=== PATIENT | male | born 1950 | race Caucasian/White ===

== ENCOUNTER 2018-04-05 20:08 | Emergency (ER) | payer MEDICARE, SELFPAY ==
[2018-04-05 20:13] VITALS: BP 157/88; PULSE 88; RESP 20; TEMP 36.6; O2SAT 99; BMI 37.6
[2018-04-05 21:45] VITALS: BP 162/99; PULSE 87; RESP 18; O2SAT 99
--- NOTE | 2018-04-05 21:57 | DI.RAD.S_ITS ---
PROCEDURE: XR CHEST 1V INDICATIONS: 67-year-old male with hypertension and cardiac history. TECHNIQUE: One view of the chest was acquired. COMPARISON: [facility], , CHEST 1 VIEW, 04/14/2017, 17:01. [facility], , CHEST 2 VIEW, 03/25/2017, 11:37. [facility], , CHEST 1 VIEW, 01/08/2017, 10:15. FINDINGS: Surgical changes and devices: None. Lungs and pleura: No pleural effusions or pneumothorax. Lungs are clear. Mediastinum: Mediastinal contours appear normal. Heart size is normal. Bones and chest wall: No suspicious bony lesions. Overlying soft tissues appear unremarkable. IMPRESSION: No acute cardiopulmonary disease. Dictated by: Jordin Ponce M.D. on 04/06/2018 at 7:50 Approved by: Jordni Ponce M.D. on 04/06/2018 at 7:50
[2018-04-05 22:05] LABS: Add Manual Diff / Slide Review NO; Basophils Percent Auto 0.7 % (0-2); Eosinophils Percent Auto 2.8 % (2-4); Hemoglobin 14.4 g/dL (13.5-17.5); Lymphocytes Percent Auto 33.4 % (25-40); Mean Corpuscular HGB Conc 34.4 % (30-36); Mean Corpuscular Volume 84.2 fL (80-100); Monocytes Percent Auto 8.1 % (3-14); Neutrophils Absolute Auto 3600 /uL (3000-5900); Platelet Count 191 X10^3/uL (150-400); Red Blood Cell Count 4.98 X10^6/uL (4.5-5.9); Red Cell Distribution Width 14.2 % (11.6-14.8); White Blood Cell Count 6.5 X10^3/uL (4.5-11.0)
[2018-04-05 22:11] LABS: Alanine Aminotransferase 41 IU/L (21-72); Albumin 4.2 g/dL (3.5-5.0); Albumin Globulin Ratio 1.2 (1.0-2.8); Alkaline Phosphatase 93 U/L (38-126); Aspartate Aminotransferase 25 IU/L (17-59); Bilirubin Total 0.8 mg/dL (0.2-1.3); Blood Urea Nitrogen 18 mg/dL (9-20); Calcium 8.8 mg/dL (8.4-10.2); Carbon Dioxide 28 mmol/L (22-32); Chloride 99 mmol/L (98-107); Creatine Kinase 125 U/L (55-170); Estimated Glomerular Filt Rate > 60.0 mL/min (>60); Globulin 3.5 g/dL (1.7-4.1); Glucose 90 mg/dL (80-110); HEMOLYSIS < 15 (0-50); Lipase 75 U/L (23-300); Potassium 4.2 mmol/L (3.4-5.1); Sodium 133 mmol/L (137-145); Total Protein 7.7 g/dL (6.3-8.2)
[2018-04-05 22:17] VITALS: BP 174/97; PULSE 78; RESP 19; O2SAT 99
[2018-04-05 22:22] LABS: Troponin I 0.021 ng/mL (0.01-0.034)
[2018-04-05 22:26] LABS: CKMB % Relative Index 2.2 % (1.5-5.0); Creatine Kinase MB 2.75 ng/mL (<2.37)
--- NOTE | 2018-04-05 22:55 | ED.GENADULT ---
HPI - General Adult General Chief complaint: Hypertension Stated complaint: SAYS HIS BLOOD PRESSURE IS REALLY HIGH Time Seen by Provider: 04/05/18 21:32 Source: patient Mode of arrival: ambulatory Limitations: no limitations History of Present Illness HPI narrative: Patient presents to the emergency department today stating that he has had multiple episodes of just not feeling right over the past few days to weeks and states this all started when he started drinking energy drinks. He states that he has been working more than normal and sleeping last. As a result he has been consuming more caffeine than that which is normal for him. On multiple occasions in the emergency department he stated he felt on well and it was noted that he was throwing occasional PVCs at that point time. At home he had an episode where he felt particularly bad and flushed and took his blood pressure and found it to be 185 systolic. He has a history of hypertension and had been on lisinopril in the past. He denies any significant chest pain or shortness of breath. He denies nausea, vomiting or diarrhea. He denies history of the same. Onset (ago): week(s) Treatments prior to arrival: none Related Data Home Medications Medication Instructions Recorded Confirmed [IODIZYME] Q DAY #0 01/08/17 aspirin 81 mg PO QDAY #0 01/08/17 levothyroxine [Synthroid] 25 mcg PO QDAY #0 01/08/17 Previous Rx's Medication Instructions Recorded albuterol sulfate [Ventolin HFA] 0 puff INH Q4HP PRN #1 ea 03/25/17 hydrochlorothiazide 25 mg PO QDAY PRN #30 tab 03/25/17 azithromycin [Zithromax Z-Saji] 0 tab PO QDAY #6 tab 04/14/17 prednisone 50 mg PO AMCC 5 Days #0 tab 04/14/17 lisinopril 20 mg PO DAILY #30 tab 04/05/18 Allergies Allergy/AdvReac Type Severity Reaction Status Date / Time codeine [CODEINE] Allergy Unknown MAKES Verified 04/05/18 20:18 IRRITABLE, VOMITING Review of Systems Review of Systems All systems reviewed & are unremarkable except as noted in HPI and below Constitutional Denies chills, Denies fever(s), Denies lethargy and Denies weakness Eyes Denies change in vision, Denies eye discharge, Denies irritation and Denies loss of vision ENT Ears, Nose, Mouth, and Throat: Denies change in voice, Denies neck pain and Denies sore throat Cardiovascular Denies chest pain, Denies irregular heart rhythm, Denies lightheadedness, Denies palpitations, Denies dyspnea, Denies dyspnea on exertion and Denies orthopnea Respiratory Denies cough, Denies dyspnea, Denies dyspnea on exertion and Denies wheezing Gastrointestinal Gastrointestinal: Denies abdominal pain, Denies change in bowel habits, Denies diarrhea, Denies nausea and Denies vomiting Genitourinary Denies hematuria, Denies flank pain, Denies urinary incontinence and Denies urinary urgency Musculoskeletal Denies neck pain Integumentary/Breasts Denies pruritus, Denies erythema, Denies rash and Denies wounds Neurologic Denies confusion, Denies loss of vision and Denies weakness Psychiatric Denies anxiety, Denies confusion, Denies depression, Denies homicidal ideation and Denies suicidal ideation Endocrine Denies palpitations Hematologic/Lymphatic Denies easy bruising Allergic/Immunologic Denies wheezing [facility] Social History Smoking Status: Former smoker Exam Initial Vital Signs Initial Vital Signs: Vital Signs Temperature 98 F 04/05/18 20:13 Pulse Rate 88 04/05/18 20:13 Respiratory Rate 20 04/05/18 20:13 Blood Pressure 157/88 H 04/05/18 20:13 Pulse Oximetry 99 04/05/18 20:13 Const General: cooperative and well developed Nutritional Appearance: well nourished Orientation: alert, awake, oriented x3 and not confused HENMD Head: normocephalic and atraumatic Ears: external ears normal and TM's normal bilaterally Nose: external nose normal and No nasal discharge Face and sinus: sinuses nontender, face symmetric, no sinus tenderness and No dry mucous membranes Mouth: oral mucosae normal and moist mucous membranes Teeth and gingiva: dentition normal Throat: tonsils normal and uvula midline Eyes General: appearance normal, both eyes and all related structures Eyelids: eyelids normal Conjunctivae: conjunctivae normal Sclera: sclerae normal Pupils: PERRL EOM: EOM intact bilaterally Neck Neck: normal visual inspection, trachea midline, No lymphadenopathy, No midline deformity and No JVD Lymphatic: No lymphedema Chest Chest: normal inspection of the chest Resp Effort & Inspection: normal respiratory effort, able to speak in complete sentences, no respiratory distress and no use of accessory muscles Auscultation: clear to auscultation bilaterally, no rales, no rhonchi and no wheezes Cardio Rate: regular rate Rhythm: regular rhythm Heart Sounds: no click, no gallops, no murmurs and no rubs Pulses: normal peripheral pulses GI Inspection: non-distended Palpation: soft, no hepatosplenomegaly, No guarding, No pulsatile mass and No tender Auscultation: normal bowel sounds Back/Spine/Pelvis Back: No CVA tenderness Cervical Spine: cervical ROM normal and No pain with cervical ROM Thoracic/Lumbar Spine: thoracic and lumbar spine normal to inspection Skin General: no rashes or lesions noted, No jaundice and No petechiae Neuro General: alert, oriented x3, gait normal and no focal motor deficits Speech: speech normal Extrem General: full ROM, no clubbing, cyanosis or edema, no pedal edema and no calf tenderness Psych Appearance: well kempt Mental Status: mental status grossly normal Attitude: cooperative Thought Content: normal and suicidality Judgment: judgment good Course Orders Ordered: ED Orders 04/05/18 21:00 EKG-12 Lead Routine 04/05/18 21:50 Complete Blood Count AUTO DIFF Stat Comprehensive Metabolic Panel Stat Lipase Stat Troponin with CK Cardiac Panel Stat 04/05/18 21:57 XR chest 1V Stat Discontinued Medications Aspirin (Aspirin Chew) 324 mg PO NOW ONE Stop: 04/05/18 21:58 Sodium Chloride (Normal Saline 0.9%) 1,000 mls @ 150 mls/hr IV CONT RAINER Reevaluation(s) Reevaluation #1: Patient continues to be asymptomatic, as he has been for the duration of his visit Vital Signs - 8 hr 04/05/18 21:45 04/05/18 22:17 04/05/18 23:20 Pulse Rate 87 78 79 Respiratory Rate 18 19 16 Blood Pressure [Right Arm] 162/99 H 174/97 H 153/97 H Pulse Oximetry 99 99 96 Medical Decision Making MDM Narrative Medical decision making narrative: Differential diagnosis includes PVCs, ischemic heart disease, hypertension, fatigue, exposure to caffeine, versus other. Lab Data Result diagrams: 04/05/18 21:50 04/05/18 21:50 Lab Results 04/05/18 04/05/18 Range/Units 21:50 21:50 WBC 6.5 (4.5-11.0) X10^3/uL RBC 4.98 (4.5-5.9) X10^6/uL Hgb 14.4 (13.5-17.5) g/dL Hct 42.0 (41-53) % MCV 84.2 (80-100) fL MCH 29.0 (26-34) PG MCHC 34.4 (30-36) % RDW 14.2 (11.6-14.8) % Plt Count 191 (150-400) X10^3/uL Neut % (Auto) 55.0 (50-75) % Lymph % (Auto) 33.4 (25-40) % [place] % (Auto) 8.1 (3-14) % Eos % (Auto) 2.8 (2-4) % Baso % (Auto) 0.7 (0-2) % Neut # (Auto) 3600 (8984-4657) /uL Sodium 133 L (137-145) mmol/L Potassium 4.2 (3.4-5.1) mmol/L Chloride 99 (98-107) mmol/L Carbon Dioxide 28 (22-32) mmol/L BUN 18 (9-20) mg/dL Creatinine 1.00 (0.66-1.25) mg/dL Estimated GFR > 60.0 (>60) mL/min BUN/Creatinine Ratio 18.0 (6-22) Glucose 90 (80-110) mg/dL Calcium 8.8 (8.4-10.2) mg/dL Total Bilirubin 0.8 (0.2-1.3) mg/dL AST 25 (17-59) IU/L ALT 41 (21-72) IU/L Alkaline Phosphatase 93 (38-126) U/L Total Creatine Kinase 125 (55-170) U/L CK-MB (CK-2) 2.75 H (<2.37) ng/mL CK-MB (CK-2) Rel Index 2.2 (1.5-5.0) % Troponin I 0.021 (0.01-0.034) ng/mL Total Protein 7.7 (6.3-8.2) g/dL Albumin 4.2 (3.5-5.0) g/dL Globulin 3.5 (1.7-4.1) g/dL Albumin/Globulin Ratio 1.2 (1.0-2.8) Lipase 75 (23-300) U/L ECG Data Attestation: I personally reviewed and interpreted this ECG as follows: Prior ECG tracings: not available for review Interpretation: EKG is normal sinus rhythm and free of any signs of ischemia or ectopy. Discharge Plan Departure Patient Disposition: Home, Self-Care Clinical Impression: HTN, goal below 140/90 Discharge Date/Time: 04/05/18 23:40 Interventions: ED Discharge Assessment Last Done: 04/05/18 23:39 Instructions: DI for High Blood Pressure Activity Restrictions/Additional Instructions: *You have been diagnosed with [ HTN, fatigue, PVCs ] *What to do: *Take medications as directed *Follow up with your PCP: you've been given some contact info *Return to ER if you should have any new, worsening or concerning symptoms Prescriptions: New lisinopril 20 mg tablet 20 mg PO DAILY Qty: 30 RF: 0 No Action levothyroxine [Synthroid] 25 MCG tablet 25 mcg PO QDAY Qty: 0 RF: 0 aspirin 81 MG tablet,chewable 81 mg PO QDAY Qty: 0 RF: 0 [IODIZYME] Q DAY Qty: 0 RF: 0 hydrochlorothiazide 25 MG tablet 25 mg PO QDAY PRNQty: 30 RF: 0 albuterol sulfate [Ventolin HFA] 90 MCG/PUFF HFA aerosol inhaler INH Q4HP PRNQty: 1 RF: 0 azithromycin [Zithromax Z-Saji] 250 MG tablet PO QDAY Qty: 6 RF: 0 prednisone 50 MG tablet 50 mg PO AMCC 5 Days Qty: 0 RF: 0 Referrals: Genia Hull DO [Primary Care Provider] -
[2018-04-05 23:20] VITALS: BP 153/97; PULSE 79; RESP 16; O2SAT 96
== END 2018-04-05 23:40 | disposition home or self-care (01) ==
PROVIDERS: Emergency Provider Emergency Medicine; PCP Family Medicine
DX: I10 Essential (primary) hypertension (principal)
CPT/HCPCS: 36591; 71045; 80053; 81003; 82550; 82553; 83690; 84484; 85025; 93005; 99283; 99285

== ENCOUNTER 2021-06-19 14:58 | Emergency (ER) | payer MEDICARE, SELFPAY ==
[2021-06-19 15:07] VITALS: BP 165/88; PULSE 85; RESP 22; O2SAT 98
--- NOTE | 2021-06-19 17:16 | DI.CT.S_ITS ---
PROCEDURE: CT HEAD/BRAIN WO CON INDICATIONS: worst headache TECHNIQUE: Noncontrast 4.5 mm thick angled axial sections acquired from the foramen magnum to the vertex, with coronal and sagittal reformats. For radiation dose reduction, the following was used: automated exposure control, adjustment of mA and/or kV according to patient size. COMPARISON: [facility], CT, HEAD WITHOUT CONTRAST, 01/08/2017, 8:03. FINDINGS: Image quality: Excellent. CSF spaces: Basal cisterns are patent. No extra-axial fluid collections. Ventricles are normal in size and shape. Mild atrophy and multifocal white matter chronic ischemic change noted, stable from the prior. Brain: No midline shift. No intracranial masses or hemorrhage. [place]-white matter interface is normal. Atherosclerotic vascular calcification noted involving the cavernous segments of both ICA Skull and face: Calvarium and visualized facial bones are intact, without suspicious lesions. Sinuses: Visualized sinuses and mastoids are clear. IMPRESSION: Mild atrophy and white matter chronic ischemic change without intracranial hemorrhage or mass effect. Approved by: Zaid Black M.D. on 06/19/2021 at 17:13
--- NOTE | 2021-06-19 17:19 | DI.RAD.S_ITS ---
PROCEDURE: XR CHEST 1V INDICATIONS: Flu like symptoms TECHNIQUE: One view of the chest was acquired. COMPARISON: [facility], CR, XR CHEST 1V, 04/05/2018, 22:07. FINDINGS: Surgical changes and devices: None. Lungs and pleura: Bibasilar atelectasis and/or infiltrates greater on the left. Minimal right hemidiaphragm elevation. Mediastinum: Mediastinal contours appear normal. Heart size is normal. Bones and chest wall: No suspicious bony lesions. Overlying soft tissues appear unremarkable. IMPRESSION: Bibasilar atelectasis and/or infiltrate current, greater on the left Dictated by: Zaid Black M.D. on 06/19/2021 at 16:38 Approved by: Zaid Black M.D. on 06/19/2021 at 16:39
[2021-06-19 17:20] LABS: COVID19 -Nasal RAPID POSITIVE (Negative)
[2021-06-19 17:38] LABS: Add Manual Diff / Slide Review NO; Basophils Absolute Auto 0 /uL (0-100); Basophils Percent Auto 0.3 % (0-2); Eosinophils Absolute Auto 0 /uL (0-450); Hematocrit 43.1 % (41-53); Hemoglobin 14.6 g/dL (13.5-17.5); Lymphocytes Absolute Auto 1300 /uL (1100-4500); Lymphocytes Percent Auto 24.5 % (25-40); Mean Corpuscular HGB Conc 33.8 % (30-36); Mean Corpuscular Hemoglobin 28.4 PG (26-34); Monocytes Absolute Auto 500 /uL (0-900); Monocytes Percent Auto 10.5 % (3-14); Neutrophils Absolute Auto 3300 /uL (1500-7000); Neutrophils Percent Auto 63.7 % (50-75); Platelet Count 225 X10^3/uL (150-400); Red Blood Cell Count 5.13 X10^6/uL (4.5-5.9); Red Cell Distribution Width 14.8 % (11.6-14.8); White Blood Cell Count 5.1 X10^3/uL (4.5-11.0)
[2021-06-19 17:52] LABS: Alanine Aminotransferase 28 IU/L (<50); Albumin Globulin Ratio 1.1 (1.0-2.8); Alkaline Phosphatase 71 U/L (38-126); Aspartate Aminotransferase 34 IU/L (17-59); BUN Creatinine Ratio 15.5 (6-22); Bilirubin Total 0.8 mg/dL (0.2-1.3); Blood Urea Nitrogen 16 mg/dL (9-20); Calcium 8.8 mg/dL (8.4-10.2); Carbon Dioxide 28 mmol/L (22-32); Chloride 100 mmol/L (98-107); Estimated Glomerular Filt Rate > 60.0 mL/min (>60); Globulin 3.6 g/dL (1.7-4.1); Glucose 128 mg/dL (80-110); HEMOLYSIS < 15 (0-50); Potassium 4.2 mmol/L (3.4-5.1); Sodium 133 mmol/L (137-145); Total Protein 7.6 g/dL (6.3-8.2)
[2021-06-19] MEDS: SODIUM CHLORIDE 0.9% 1,000 ML 1000 ML IV (18:04)
[2021-06-19] MEDS: ONDANSETRON 4 MG/2 ML INJ IV (18:05)
[2021-06-19] MEDS: ACETAMINOPHEN 325 MG TABLET 975 MG PO (18:05)
[2021-06-19 18:25] VITALS: PULSE 84; O2SAT 92
[2021-06-19 18:30] VITALS: PULSE 87; O2SAT 92
[2021-06-19 18:52] VITALS: BP 173/99; PULSE 84; O2SAT 92
--- NOTE | 2021-06-19 18:57 | ED_ITS ---
HPI - Headache General Chief Complaint: Headache Stated Complaint: headache x 5 days, HBP Time Seen by Provider: 06/19/21 18:05 Mode of arrival: Ambulatory History of Present Illness HPI Narrative: 71-year-old gentleman with a history of hypothyroidism, hypertension and asthma presents complaining of a headache. He has been having low-grade fevers, nausea, vomiting diarrhea and slight cough. He has been feeling unwell for at least the last 8 days and perhaps longer. 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 He is very clear that he does not bleeding COVID, vaccinations or masking. He notes that he had a severe headache 30 years ago that responded to [employer] and is assuming that his current headache is a ?migraine?. Related Data Home Medications Medication Instructions Recorded Confirmed [IODIZYME] Q DAY #0 01/08/17 aspirin 81 mg chewable tablet 81 mg PO QDAY #0 01/08/17 levothyroxine 25 mcg tablet 25 mcg PO QDAY #0 01/08/17 (Synthroid) Previous Rx's Medication Instructions Recorded albuterol sulfate 90 mcg/actuation 0 puff INH Q4HP PRN #1 ea 03/25/17 aerosol inhaler (Ventolin HFA) hydrochlorothiazide 25 mg tablet 25 mg PO QDAY PRN #30 tab 03/25/17 azithromycin 250 mg tablet 0 tab PO QDAY #6 tab 04/14/17 (Zithromax Z-Saji) prednisone 50 mg tablet 50 mg PO AMCC 5 Days #0 tab 04/14/17 lisinopril 20 mg tablet 20 mg PO DAILY #30 tab 04/05/18 Allergies Allergy/AdvReac Type Severity Reaction Status Date / Time codeine [CODEINE] Allergy Unknown MAKES Verified 04/05/18 20:18 IRRITABLE, VOMITING Review of Systems Review of Systems Narrative: Remainder of complete review of systems is otherwise unremarkable except for that included in the HPI. Patient History Medical History (Updated 06/20/21 @ 05:52 by Margaret Weiss MD) COVID-19 Dependent edema Social History Smoking Status: Former smoker Smoking Status: Former smoker alcohol intake frequency: a few times a month Exam Narrative Exam Narrative: General: Healthy appearing, in no acute distress. Able to give a complete and coherent history. Well-nourished well-developed HEENT: Moist mucous membranes, normal sclera with reactive pupils, Neck: No JVD, supple Respiratory: Lungs are clear to auscultation, no wheezing no rales no rhonchi. Full and symmetrical air movement Cardiac: Regular rate and rhythm no murmurs no bruits Abdomen: Soft, nontender, good bowel tones, no flank pain Skin: Warm and dry, no rashes Neurologic: Grossly neurologically intact with no obvious asymmetries or abnormalities Extremities: No trauma, well perfused Psych: Cooperative, appropriate insight and affect Initial Vital Signs Initial Vital Signs: Vital Signs Pulse Rate 85 06/19/21 15:07 Respiratory Rate 22 06/19/21 15:07 Blood Pressure 165/88 H 06/19/21 15:07 Pulse Oximetry 98 06/19/21 15:07 Course Orders Ordered: Discontinued Medications Acetaminophen (Acetaminophen 325 Mg Tablet) 975 mg PO NOW ONE Stop: 06/19/21 15:42 Last Admin: 06/19/21 18:05 Dose: 975 mg Documented by: DEVANG Dexamethasone (Dexamethasone 10 Mg/Ml Vial) 10 mg IV NOW ONE Stop: 06/19/21 19:11 Last Admin: 06/19/21 19:23 Dose: 10 mg Documented by: OLVIN Diphenhydramine HCl (Diphenhydramine 50 Mg/Ml Vial) 25 mg IV NOW ONE Stop: 06/19/21 19:11 Last Admin: 06/19/21 19:24 Dose: 25 mg Documented by: OLVIN Sodium Chloride (Normal Saline 0.9%) 1,000 mls @ 1,000 mls/hr IV BOLUS ONE Stop: 06/19/21 18:15 Last Infusion: 06/19/21 19:30 Dose: 0 mls/hr Documented by: Admin: 06/19/21 18:04 Dose: 1,000 mls/hr Documented by: DEVANG Ketorolac Tromethamine (Ketorolac 30 Mg/Ml Vial) 15 mg IV NOW ONE Stop: 06/19/21 19:15 Last Admin: 06/19/21 19:26 Dose: 15 mg Documented by: OLVIN Metoclopramide HCl (Metoclopramide 10 Mg/2 Ml Inj) 10 mg IV NOW ONE Stop: 06/19/21 19:11 Last Admin: 06/19/21 19:25 Dose: 10 mg Documented by: ATAYLOR Ondansetron HCl (Ondansetron 4 Mg/2 Ml Inj) 4 mg IV NOW ONE Stop: 06/19/21 17:19 Last Admin: 06/19/21 18:05 Dose: 4 mg Documented by: DEVANG Vital Signs Vital signs: Vital Signs - 8 hr 06/19/21 15:07 Pulse Rate 85 Respiratory Rate 22 Blood Pressure 165/88 H Pulse Oximetry 98 MDM - Headache Lab Data Result diagrams: 06/19/21 17:26 06/19/21 17:26 Labs: Lab Results 06/19/21 06/19/21 06/19/21 Range/Units 17:02 17:26 17:26 WBC 5.1 (4.5-11.0) X10^3/uL RBC 5.13 (4.5-5.9) X10^6/uL Hgb 14.6 (13.5-17.5) g/dL Hct 43.1 (41-53) % MCV 84.0 (80-100) fL MCH 28.4 (26-34) PG MCHC 33.8 (30-36) % RDW 14.8 (11.6-14.8) % Plt Count 225 (150-400) X10^3/uL Neut % (Auto) 63.7 (50-75) % Lymph % (Auto) 24.5 L (25-40) % [place] % (Auto) 10.5 (3-14) % Eos % (Auto) 1.0 L (2-4) % Baso % (Auto) 0.3 (0-2) % Neut # (Auto) 3300 (7944-3878) /uL Lymph # (Auto) 1300 (1574-5645) /uL [place] # (Auto) 500 (0-900) /uL Eos # (Auto) 0 (0-450) /uL Baso # (Auto) 0 (0-100) /uL Sodium 133 L (137-145) mmol/L Potassium 4.2 (3.4-5.1) mmol/L Chloride 100 (98-107) mmol/L Carbon Dioxide 28 (22-32) mmol/L BUN 16 (9-20) mg/dL Creatinine 1.03 (0.66-1.25) mg/dL Estimated GFR > 60.0 (>60) mL/min BUN/Creatinine Ratio 15.5 (6-22) Glucose 128 H (80-110) mg/dL Calcium 8.8 (8.4-10.2) mg/dL Total Bilirubin 0.8 (0.2-1.3) mg/dL AST 34 (17-59) IU/L ALT 28 (<50) IU/L Alkaline Phosphatase 71 (38-126) U/L Total Protein 7.6 (6.3-8.2) g/dL Albumin 4.0 (3.5-5.0) g/dL Globulin 3.6 (1.7-4.1) g/dL Albumin/Globulin Ratio 1.1 (1.0-2.8) SARS-CoV-2 (PCR) Positive H (Negative) Imaging Data Chest x-ray: Radiologist's Impression: FINDINGS: Surgical changes and devices: None. Lungs and pleura: Bibasilar atelectasis and/or infiltrates greater on the left. Minimal right hemidiaphragm elevation. Mediastinum: Mediastinal contours appear normal. Heart size is normal. Bones and chest wall: No suspicious bony lesions. Overlying soft tissues appear unremarkable. IMPRESSION: Bibasilar atelectasis and/or infiltrate current, greater on the left Dictated by: Zaid Black M.D. on 06/19/2021 at 16:38 CT scan - head: Radiologist's Impression: FINDINGS: Image quality: Excellent. CSF spaces: Basal cisterns are patent. No extra-axial fluid collections. Ventricles are normal in size and shape. Mild atrophy and multifocal white matter chronic ischemic change noted, stable from the prior. Brain: No midline shift. No intracranial masses or hemorrhage. [place]-white matter interface is normal. Atherosclerotic vascular calcification noted involving the cavernous segments of both ICA Skull and face: Calvarium and visualized facial bones are intact, without suspicious lesions. Sinuses: Visualized sinuses and mastoids are clear. IMPRESSION: Mild atrophy and white matter chronic ischemic change without intracranial hemorrhage or mass effect. Approved by: Zaid Black M.D. on 06/19/2021 at 17:13 MDM Narrative Medical decision making narrative: 71-year-old gentleman presents with headache that has been present for a week convinced he is a migraine headache despite no history of chronic headache. When asked about additional symptoms COVID testing was prompted and he was found to be COVID positive. Oxygen saturations are in the 96% range on room air. He is given a L of fluid, Zofran for the nausea for his headache he is treated with Toradol, Reglan, Benadryl and Decadron since it has been present for over a week. Headache improves nicely. He has no evidence of impending respiratory distress or acute COVID pneumonia. Did recommend that he self isolate and mask to avoid spreading high at the disease. He is safe for home discharge Discharge Plan Departure Patient Disposition: Home Clinical Impression: COVID-19 Instructions: DI for COVID-19 (Suspected or Confirmed ) Activity Restrictions/Additional Instructions: You are having many of the usual symptoms we see with COVID-19. In the emergency room your given the medications we typically use for migraine headaches including fluids, Reglan, Benadryl, Toradol, Decadron and Zofran to help with the nausea. You may consider trying Excedrin for the continued headache over the next couple of days. Your blood pressure was quite high today and I suspect that that is due to the headache pain. I would recommend that you follow-up with an outpatient physician regarding your blood pressure once you are past COVID symptoms including headache Recommendations to prevent the spread of COVID are to self isolate which means staying at home and not exposing yourself to others for at least 24 hours after all symptoms are gone and 10 days from the initiation of symptoms. For you symptoms include headache, nausea and the mild loose stools. If you find that you are feeling worse please return to the ER Prescriptions: No Action levothyroxine [Synthroid] 25 MCG tablet 25 mcg PO QDAY Qty: 0 RF: 0 aspirin 81 MG tablet,chewable 81 mg PO QDAY Qty: 0 RF: 0 [IODIZYME] Q DAY Qty: 0 RF: 0 hydrochlorothiazide 25 MG tablet 25 mg PO QDAY PRNQty: 30 RF: 0 albuterol sulfate [Ventolin HFA] 90 MCG/PUFF HFA aerosol inhaler 0 puff INH Q4HP PRNQty: 1 RF: 0 azithromycin [Zithromax Z-Saji] 250 MG tablet 0 tab PO QDAY Qty: 6 RF: 0 prednisone 50 MG tablet 50 mg PO AMCC 5 Days Qty: 0 RF: 0 lisinopril 20 mg tablet 20 mg PO DAILY Qty: 30 RF: 0 Referrals: Genia Hull DO [Primary Care Provider] -
[2021-06-19 19:00] VITALS: BP 159/85; PULSE 87; O2SAT 94
[2021-06-19] MEDS: DEXAMETHASONE 10 MG/ML VIAL IV (19:23)
[2021-06-19] MEDS: diphenhydrAMINE 50 MG/ML VIAL 25 MG IV (19:24)
[2021-06-19] MEDS: METOCLOPRAMIDE 10 MG/2 ML INJ IV (19:25)
[2021-06-19] MEDS: KETOROLAC 30 MG/ML VIAL 15 MG IV (19:26)
[2021-06-19 19:42] VITALS: PULSE 80; RESP 16; O2SAT 100
== END 2021-06-19 19:52 | disposition home or self-care (01) ==
PROVIDERS: Emergency Medicine; Emergency Provider Emergency Medicine; PCP Family Medicine
DX: U07.1 COVID-19 (principal); R50.9 Fever, unspecified; R19.7 Diarrhea, unspecified; R05 Cough; R11.2 Nausea with vomiting, unspecified
CPT/HCPCS: 70450; 71045; 80053; 85025; 87635; 96361; 96374; 96375; 99284; C9803; J1100; J1200; J1885; J2405; J2765